=== PATIENT | female | born 2000 | race Caucasian/White ===

== ENCOUNTER 2020-06-26 07:47 | Emergency (ER) | payer MEDICAID ==
[~2020-06-26] VITALS: Ht 167.6 cm; Wt 79.0 kg
[2020-06-26 08:18] VITALS: BP 125/59
[2020-06-26] MEDS ORDERED: IBUPROFEN 600MG TABLET PO ONE (09:00)
== END 2020-06-26 09:39 | disposition home or self-care (01) ==
LOC: ER 07:47
DX: M54.5 Low back pain (principal)
CPT/HCPCS: 99282